=== PATIENT | female | born 1975 | race Caucasian/White ===

== ENCOUNTER → 2020-05-03 16:37 | Outpatient (CLI) | payer BC, SELFPAY ==
--- NOTE | ~2020-05-03 | XR_ITS ---
XR foot RT min 3V DATE: 05/03/2020 16:54 INDICATION: Right foot pain TECHNIQUE: 4 views COMPARISON: None FINDINGS: No fracture, dislocation, periosteal reaction or bone destruction. IMPRESSION: Negative Reviewed, dictated and finalized at location A. IMPRESSION: Negative
== END ==
PROVIDERS: PCP Family Medicine; Visit Provider Physician Assistant
DX: M79.673 Pain in unspecified foot (principal)
CPT/HCPCS: 73630

== ENCOUNTER → 2020-09-06 14:56 | Outpatient (CLI) | payer BC, SELFPAY ==
--- NOTE | ~2020-09-06 | MM_ITS ---
EXAMINATION: MM screening [facility] BI w yo HISTORY: Screening mammogram TECHNIQUE: Craniocaudal and mediolateral oblique 3-D tomosynthesis images were obtained and synthetic 2-D images were generated. CAD analysis was submitted and interpreted. COMPARISON: 06/16/2019, 06/09/2019, 01/29/2018 BREAST PARENCHYMAL COMPOSITION: There are scattered areas of fibroglandular density. FINDINGS: There is no evidence of suspicious mass, calcification, or architectural distortion to sugg est malignancy in either breast. There has been no suspicious interval change. IMPRESSION: 1. No mammographic evidence of malignancy. 2. Recommend routine screening mammography in one year. BI-RADS Category 1: Negative Reviewed, dictated and finalized at location A. 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
== END ==
PROVIDERS: Visit Provider Obstetrics & Gynecology
DX: Z12.31 Encounter for screening mammogram for malignant neoplasm of breast (principal)
CPT/HCPCS: 77063; 77067

== ENCOUNTER → 2021-07-18 14:39 | Outpatient (CLI) | payer BC, SELFPAY ==
--- NOTE | ~2021-07-18 | US_ITS ---
EXAMINATION: US pelvic complete w TV EXAM DATE: 07/18/2021 15:07 INDICATION: Hypertrophy of uterus. TECHNIQUE: Pelvic transabdominal and transvaginal sonogram was performed. There are multiple graysca le and Doppler images available for interpretation. There is no prior study for comparison. FINDINGS: Uterus measures 8.4 x 3.4 x 4.4 cm, fundal fibroid measuring 2.5 cm, smaller anterior pedu nculated fibroid measuring 1.1 cm. Endometrial stripe measures 10 mm, within normal limits. There is no free pelvic fluid. Right adnexa: The ovary measures 2.9 x 2.4 x 2.2 cm and is morphologically normal. Ovarian vascular f low confirmed. Left adnexa: The ovary measures 1.7 x 1.5 x 2.5 cm and is morphologically normal. Ovarian vascular fl ow confirmed. IMPRESSION: Fibroid uterus. Reviewed, dictated and finalized at location B. 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
== END ==
PROVIDERS: Visit Provider Obstetrics & Gynecology
DX: N85.2 Hypertrophy of uterus (principal); D25.9 Leiomyoma of uterus, unspecified
CPT/HCPCS: 76830; 76856

== ENCOUNTER → 2021-11-07 16:14 | Outpatient (CLI) | payer BC, SELFPAY ==
--- NOTE | ~2021-11-07 | MM_ITS ---
EXAMINATION: MM screening [facility] BI w yo HISTORY: Screening mammogram TECHNIQUE: Craniocaudal and mediolateral oblique 3-D tomosynthesis images were obtained and synthetic 2-D images were generated. CAD analysis was submitted and interpreted. COMPARISON: 09/16/2020, 06/16/2019, 06/09/2019 BREAST PARENCHYMAL COMPOSITION: There are scattered areas of fibroglandular density. FINDINGS: There is no evidence of suspicious mass, calcification, or architectural distortion to sugg est malignancy in either breast. There has been no suspicious interval change. IMPRESSION: 1. No mammographic evidence of malignancy. 2. Recommend routine screening mammography in one year. BI-RADS Category 1: Negative Reviewed, dictated and finalized at location A.
== END ==
PROVIDERS: Visit Provider Obstetrics & Gynecology
DX: Z12.31 Encounter for screening mammogram for malignant neoplasm of breast (principal)
CPT/HCPCS: 77063; 77067

== ENCOUNTER 2022-01-22 08:22 | Outpatient (CLI) | payer BC, SELFPAY ==
[2022-01-22 08:47] LABS: Basophils Percent Auto 0.6 % (0.2-1.2); Eosinophils Absolute Auto 0.2 K/mm3 (0-0.3); Eosinophils Percent Auto 3.7 % (0-4.4); Hematocrit 40.7 % (37.0-47.0); Immature Granulocyte Absolute 0.02 K/mm3 (0.00-0.031); Immature Granulocyte Percent A 0.4 % (0-0.5); Lymphocytes Absolute Auto 0.98 K/mm3 (0.9-3.2); Lymphocytes Percent Auto 18.2 % (18.3-44.2); Mean Corpuscular HGB Conc 31.9 g/dl (32-36); Mean Corpuscular Volume 90.8 fl (80-100); Monocytes Absolute Auto 0.3 K/mm3 (0.1-0.6); Monocytes Percent Auto 5.6 % (2.6-8.5); Neutrophils Absolute Auto 3.8 K/mm3 (1.3-6.7); Neutrophils Percent Auto 71.5 % (45.5-73.1); Platelet Count Result 207 k/mm3 (150-375); Red Blood Count 4.48 M/mm3 (4.2-5.4); Red Cell Distribution Width 13.4 % (11.5-14.5); White Blood Count 5.4 K/mm3 (4.5-10.0)
== END 2022-01-22 08:23 | disposition home or self-care (01) ==
LOC: ANHSURGERY 08:27
PROVIDERS: PCP Family Medicine; Visit Provider Obstetrics & Gynecology
DX: Z01.812 Encounter for preprocedural laboratory examination (principal); N85.2 Hypertrophy of uterus
CPT/HCPCS: 36415; 85025; 86850; 86900; 86901

== ENCOUNTER 2022-01-23 00:14 | Day surgery (SDC) | payer BC, SELFPAY ==
--- NOTE | 2022-01-19 14:46 | SUR.PREOP ---
Report to the Outpatient Waiting Room, entrance under the green pavilion located off [facility], at time 0600 on date 01/23/22. OR Time: 0730. - You and your visitor will be asked a series of questions to screen for COVID 19 for your protection. - Only one visitor is allowed at this time. - The patient visitor is requested to leave or wait in car when not with patient. - A mask is required within the hospital. Patients may have clear liquids (water, carbonated beverages, clear teas, apple juice) until 3 hours prior to surgery with a maximum of 20 ounces. - NO CLEAR LIQUIDS AFTER 0530 - No food from midnight until time of surgery - Infants may have breast milk until 4 hours before surgery, infant formula 6 hours prior to surgery. - Children will be allowed to drink immediately following surgery. If applicable, please bring a bottle or sippy cup to assist with drinking. Juice, water, soda, and popsicles are readily available. For infants on formula, please bring formula the day of surgery. Pacifiers are allowed. Take the following medications with a SIP of water the morning of surgery: SERTRALINE Please no make-up, nail english, hairspray, perfume, deodorant, or body powder the day of surgery. No jewelry (including any body piercings) or valuables the day of surgery, leave them at home. Please take a shower or bath the night before, or the morning of, surgery with an antibacterial soap. Wear comfortable, loose fitting clothing. Children are encouraged to wear pajamas. - Jewelry must be removed prior to entering the operating room. Rings and piercings that are not removed may be cut off. - The hospital will not accept responsibility for valuables. - Please leave all valuables, including medications, at home the day of surgery. If you are going home after surgery, a licensed o[employer] flatbed company truck driver must drive you home. - NO public transportation without another adult. - We recommend that an adult stay with you for 24 hours following discharge. - We also recommend that you do not drive, make important decision, drink alcoholic beverages, or take any drugs that were not prescribed by your health care provider for at least 24 hours after your discharge time. For Pediatric surgeries, we recommend two adults accompany the child home (only one inside the building at this time). Follow any additional instructions given to you from your surgeon. If you or anyone in your household have experienced Covid symptoms in the past week, please notify your surgeon or the nurse liaison at the phone number below for possible testing. Telephone instructions given to PRACHI ZAPIEN and asked if any additional questions and then verbalized understanding. Patient advised to call surgeon office or pre surgery nurse liaison [phone] if any additional questions.
[2022-01-19 14:59] VITALS: BMI 35.6
--- NOTE | 2022-01-22 07:27 | PM.IMHP ---
H&P: HPI History of Present Illness Date/Time: 01/22/22 07:27 Chief Complaint: enlarged uterus with heavy bleeding refractory to medical therapy . Risks and benefits reviewed including but not exclusive of , aspiration pneumonia, bleeding, transfusion, perforation injury to bowel, bladder, ureters, or other internal organs with need for open laparotomy. She received the ACO[employer] handout entitled hysterectomy as well as the [place] handout. She had all questions answered and asked to proceed PMFSH Past Medical History Medical History (Updated 01/22/22 @ 07:30 by Marc Rust MD) Allergic rhinitis Anxiety Cholelithiases Surgical History Surgical History Gastric bypass status for obesity H/O knee surgery Family History Family History Father Family history of diabetes mellitus in first degree relative Patient's father is in good health Family history of coronary artery disease Mother Family history of diabetes mellitus in first degree relative Hypertension Sibling Patient's sister is in good health Patient's brother is in good health Social History Social History Smoking status: Never smoker Second hand tobacco smoke exposure: No Alcohol intake: current Drinks per week: 21 Substance use: never Spiritual care concerns: No Meds Home Medications and Allergies Home Medications Medication Instructions Recorded Confirmed Type fluticasone propionate 50 1 spray intranasal BID #9.9 mL 08/07/20 01/19/22 Rx mcg/actuation nasal spray,suspension ergocalciferol (vitamin D2) 1,250 50,000 unit PO WEEKLY 01/19/22 01/19/22 History mcg (50,000 unit) capsule sertraline 50 mg tablet 100 mg PO DAILY 01/19/22 01/19/22 History Allergies Allergy/AdvReac Type Severity Reaction Status Date / Time latex Allergy Intermediate Itching Verified 01/19/22 14:37 Penicillins Allergy Unknown Rash Verified 01/19/22 14:37 Exam : Bimanual exam- vagina & uterus: enlarged Assessment and Plan Assessment and plan (1) Enlarged uterus: Code(s): N85.2 - Hypertrophy of uterus Status: Acute (2) Excessive bleeding: Code(s): R58 - Hemorrhage, not elsewhere classified Status: Acute Additional Plan robotic total vaginal hysterectomy and bilateral salpingectomies
[2022-01-23] VITALS (9 sets, daily range): BP systolic 97–147; BP diastolic 48–94; PULSE 53–95; RESP 12–20; TEMP 36.5–37; O2SAT 95–100
[2022-01-23] MEDS: ACETAMINOPHEN 500 MG TABLET 1000 MG PO (06:55)
[2022-01-23] MEDS: LACTATED RINGERS 1,000 ML 30 ML IV CONT ×2 (06:55→08:42)
--- NOTE | 2022-01-23 07:02 | WPDANESEPPF ---
Anes - Initial Pre Proc Eval Procedure: Operation Date: 01/23/22 07:30 Proposed Procedures p Robotic Assisted Total Vaginal Hysterectomy with Bilateral Salpingectomy - Marc Rust MD Date/Time: 01/23/22 07:02 Surgeon: Marc Rust MD Pre Op Diagnosis: heavy bleeding, enlarge uterus, fibroids, pain Patient Data Age: 46 Gender: F Height: 1.68 m Weight: 100 kg Allergies Allergy/AdvReac Type Severity Reaction Status Date / Time latex Allergy Intermediate Itching Verified 01/23/22 06:51 Penicillins Allergy Unknown Rash Verified 01/23/22 06:51 Home Medications Medication Instructions Recorded Confirmed Type fluticasone propionate 50 1 spray intranasal BID #9.9 mL 08/07/20 01/23/22 Rx mcg/actuation nasal spray,suspension ergocalciferol (vitamin D2) 1,250 50,000 unit PO WEEKLY 01/19/22 01/19/22 History mcg (50,000 unit) capsule sertraline 50 mg tablet 100 mg PO DAILY 01/19/22 01/23/22 History Patient hx anesthesia problems: none Family hx anesthesia problems: none Results Review: All pre-operative results and documents have been reviewed as part of the pre-operative evaluation. [facility] Past Medical History Medical History (Updated 01/22/22 @ 07:30 by Marc Rust MD) Allergic rhinitis Anxiety Cholelithiases Surgical History Surgical History Gastric bypass status for obesity H/O knee surgery Family History Family History Father Family history of diabetes mellitus in first degree relative Patient's father is in good health Family history of coronary artery disease Mother Family history of diabetes mellitus in first degree relative Hypertension Sibling Patient's sister is in good health Patient's brother is in good health Social History Social History Smoking status: Never smoker Second hand tobacco smoke exposure: No Alcohol intake: current Drinks per week: 21 Substance use: never Living arrangements: with family Spiritual care concerns: No Anes - Eval Final PreProcedure Day of Procedure 01/23/22 07:02 Patient weight: obese Heart: regular rate and rhythm Lungs: clear to auscultation Airway: Mallampati scale class II Neurological: alert and oriented ASA classification: II Emergent: no Anesthesia type and monitoring: general ETT and standard monitoring Results Review: All pre-operative results and documents have been reviewed as part of the pre-operative evaluation. Informed Consent: The patient's anesthetic plan and its attendant risks and benefits were discussed with the patient/family/POA. Questions were solicited and answers provided to the satisfaction of the patient/family/POA.
--- NOTE | 2022-01-23 07:11 | WPDHPUPDATE1 ---
History and Physical Update Update Date/Time: 01/23/22 07:11 History and Physical has been reviewed, including an updated exam of the patient. There are NO changes in the patient's condition. Risks, benefits, and alternatives have been discussed and questions answered. Patient agrees to proceed with procedure.
[2022-01-23] MEDS: ceFAZolin 2 GM/D5W 50 ML 2 GM/50 ML BAG IVPB (07:26)
--- NOTE | 2022-01-23 08:29 | SUR.OPER ---
EBL 25
--- NOTE | 2022-01-23 08:30 | W.PM.PROC2 ---
Procedure Note - Detailed Date of Procedure 01/23/22 Pre-op Diagnosis heavy bleeding, enlarge uterus, fibroids, pain Post-op Diagnosis Same Procedure Performed Robotic total vaginectomy and bilateral salpingectomy Extensive lysis of a D Surgeon Marc Rust MD Anesthesia General Indications This 46-year-old female with fibroid uterus with pain and bleeding refractory to medical therapy Findings Enlarged uterus. Normal-appearing ovaries. Multiple adhesions Description of Procedure The patient was prepped draped in the normal sterile fashion placed in the dorsal lithotomy position. Under excellent general trach anesthesia weighted speculum placed in posterior fornix vagina. Anterior lip of the cervix grasped with single-tooth tenaculum and the uterus sounded to 10cm. Serial dilatation with fragmented dilators performed followed by passage of the 10. SHERI and the 2. 0.5 cold cup. Next the 16 Upper Sorbian catheter was placed. The weighted speculum was removed the gloves were changed. A supraumbilical incision made the Veress needle passed in the abdomen. Abdomen filled with CO2 gas [id number]. The 8mm trocar advanced in the abdomen downside visualized no injury seen. Patient placed in Trendelenburg and right left lateral quadrant incisions were made. The 8mm trocars advanced under direct visualization assuring no injury. A right upper quadrant incision made the 8mm trocar advanced under direct visualization assuring no injury. Attention was turned to the counseling case manager. Multiple adhesions were seen in the uterus was difficult to visualize using sharp dissection the omentum and fatty layers were sharply dissected clearing the lateral sidewalls in the anteriorly over the bladder and the uterus. Once this was cleared the left round ligament was grasped, burned, cut. Anteriorly a bladder flap formed by sharply dissecting the peritoneum and reflecting the bladder caudally to the opposite round ligament was clamped, burned, cut. Next left fallopian tube was sharply dissected using monopolar cautery away from the ovarian complex and left attached to the uterine origin. In like fashion the right fallopian tube was sharply dissected and away from the ovarian complex and left attached to its uterine origin. The utero-ovarian ligament on the right was skeletonized to conserve the left ovary this was clamped, burned, cut brought to level of the previously cut round ligament. Conserving the right ovary the utero-ovarian ligaments clamped, burned, cut brought to the level of previously cut round ligament. Cardinal broad ligaments on the left were serially skeletonized clamping burning cutting along the cervix and uterus hugging it tightly until the uterine vessels could be seen on the left. These were noted to be large and tortuous. There were individually clamped, burned, cut. Next the cardinal broad ligaments on the right were serially skeletonized. These were clamped, burned, cut carefully hugging the cervix and uterus until the uterine vessels could be seen on the right. These were also large and tortuous and individually clamped, burned, cut. Blanching of the uterus was seen. A colpotomy incision was made in the cervix uterus and and tubes removed through the vagina. The vagina was closed with continuous running 0V lock from lateral edge to lateral edge back to the midline. Irrigation undertaken until clear blood loss estimated 25cc. The robot was undocked. The gas removed from the abdomen. Incisions closed with 4-0 Monocryl and glue after the gas had been removed. The patient was awakened and went to recovery in satisfactory condition. All sponge, needle, instrument counts were correct. There were no immediate complications Estimated Blood Loss 25 Pathology Yes Complications No immediate complications Condition Stable
[2022-01-23] MEDS: fentaNYL CITRATE INJ (*CRX) 100 MCG/2 ML VIAL 25 MCG IV PUSH ×4 (09:05→09:38)
[2022-01-23] MEDS: KETOROLAC 30 MG/ML VIAL (*BKC) IV PUSH (15:00)
[2022-01-23] MEDS: DOCUSATE SODIUM 100 MG CAPSULE PO (18:18)
[2022-01-23] MEDS: IBUPROFEN 600 MG TABLET PO (21:02)
[2022-01-23] MEDS: HYDROcodone/acetaminophen (*CRX) 5-325 MG TABLET 1 TAB PO (21:02)
[2022-01-24 00:04] VITALS: BP 137/95; PULSE 81; RESP 16; TEMP 37.1; O2SAT 96
[2022-01-24] MEDS: IBUPROFEN 600 MG TABLET PO (04:06)
[2022-01-24] MEDS: HYDROcodone/acetaminophen (*CRX) 5-325 MG TABLET 1 TAB PO (04:07)
[2022-01-24 05:07] LABS: Basophils Percent Auto 0.1 % (0.2-1.2); Eosinophils Absolute Auto 0.2 K/mm3 (0-0.3); Eosinophils Percent Auto 3.2 % (0-4.4); Hematocrit 34.7 % (37.0-47.0); Hemoglobin 11.3 g/dL (12.0-15.0); Immature Granulocyte Absolute 0.03 K/mm3 (0.00-0.031); Immature Granulocyte Percent A 0.4 % (0-0.5); Lymphocytes Absolute Auto 0.95 K/mm3 (0.9-3.2); Lymphocytes Percent Auto 12.8 % (18.3-44.2); Mean Corpuscular HGB Conc 32.6 g/dl (32-36); Mean Corpuscular Hemoglobin 29.5 pg (26-34); Mean Corpuscular Volume 90.6 fl (80-100); Mean Platelet Volume 10.1 fl (7.4-10.4); Monocytes Absolute Auto 0.4 K/mm3 (0.1-0.6); Monocytes Percent Auto 5.4 % (2.6-8.5); Neutrophils Absolute Auto 5.8 K/mm3 (1.3-6.7); Neutrophils Percent Auto 78.1 % (45.5-73.1); Platelet Count Result 164 k/mm3 (150-375); Red Blood Count 3.83 M/mm3 (4.2-5.4); Red Cell Distribution Width 13.3 % (11.5-14.5); White Blood Count 7.4 K/mm3 (4.5-10.0)
[2022-01-24 07:41] VITALS: BP 116/70; PULSE 64; RESP 16; TEMP 36.1; O2SAT 98
--- NOTE | 2022-01-24 07:59 | P.DS_ITS ---
DS: Admitting Diagnosis Discharge Date 01/24/22 Admitting Diagnosis abnormal uterine bleeding DS: Summary Hospital Course Hospital Course: Sue Colón was admitted after robotic assisted total laparoscopic hysterectomy and bilateral salpingectomy for abnormal uterine bleeding. The above procedure was performed with no complications. She is doing well post op. She states her pain is well controlled with PO medications. She reports minimal bleeding. She is ambulating up to the chair. Her lui catheter was removed. She is tolerating PO without N/V. She reports passing flatus. Status at Discharge Overall status at discharge: patient is progressing back to baseline Time Spent with Patient Time attestation: Total time spent providing and/or coordinating discharge services: Time spent: Less than 30 minutes Exam Const: General: comfortable and no acute distress Limitations: no limitations Resp: Effort & Inspection: normal respiratory effort Auscultation: clear to auscultation bilaterally Cardio: Rate: regular rate Rhythm: regular rhythm GI: Inspection: non-distended GI Palp: Yes Soft to palpation, Yes Tenderness to palpation present (GI) (milder tenderness to deep palpation) and No Guarding due to palpation present (GI) Auscultation: normal bowel sounds Other: incisions C/D/I covered with dermabond Urinary Catheter: Urinary Catheter: urine clear Skin: General skin exam: normal color Extrem: General: normal to inspection Psych: Mental Status: mental status grossly normal Affect: normal affect DS: Data Data Completed and Pending Pending studies at discharge: Pending at discharge 01/23/22 08:18 Surgical [PTH] Routine Labs on day of discharge: Labs from last 24 hours 01/24/22 04:58 WBC 7.4 RBC 3.83 L Hgb 11.3 L Hct 34.7 L MCV 90.6 MCH 29.5 MCHC 32.6 RDW 13.3 Plt Count 164 MPV 10.1 Immature Gran % (Auto) 0.4 Neut % (Auto) 78.1 H Lymph % (Auto) 12.8 L [place] % (Auto) 5.4 Eos % (Auto) 3.2 Baso % (Auto) 0.1 L Lymph # (Auto) 0.95 [place] # (Auto) 0.4 Eos # (Auto) 0.2 Baso # (Auto) 0.0 Abs Immat Gran (auto) 0.03 Absolute Neuts (auto) 5.8 Absolute Nucleated RBC 0.0 Nucleated RBC % 0.0 Discharge Plan Discharge Patient Disposition: Home, Self-Care Patient Instructions: Hysterectomy (DC) Stand Alone Forms: General Discharge Instructions Follow-up/Referrals: Marc Santiago MD [Physician] - Discharge Medications: New hydrocodone-acetaminophen 5-325 mg tablet 1 tablet PO Q4H PRN (Reason: pain) Qty: 30 0RF No Action fluticasone propionate 50 mcg/actuation spray,suspension 1 spray intranasal BID Qty: 9.9 1RF Rx Instructions: administer into each nostril ergocalciferol (vitamin D2) 1,250 mcg (50,000 unit) capsule 50,000 unit PO WEEKLY sertraline 50 mg tablet 100 mg PO DAILY
[2022-01-24] MEDS: DOCUSATE SODIUM 100 MG CAPSULE PO (09:59)
[2022-01-24] MEDS: ENOXAPARIN 40 MG/0.4 ML SYRINGE SUB-Q (10:00)
== END 2022-01-24 10:52 | disposition home or self-care (01) ==
LOC: ANHSURGERY 07:12 → ANHOB2 09:54
PROVIDERS: PCP Family Medicine; Visit Provider Obstetrics & Gynecology
PROC: (CPT 58552; principal; 2022-01-23 07:30)
DX: N93.9 Abnormal uterine and vaginal bleeding, unspecified (principal); N80.0 Endometriosis of uterus; D25.1 Intramural leiomyoma of uterus; D25.2 Subserosal leiomyoma of uterus; N73.6 Female pelvic peritoneal adhesions (postinfective); F41.9 Anxiety disorder, unspecified; Z98.84 Bariatric surgery status; E66.9 Obesity, unspecified; Z68.35 Body mass index [BMI] 35.0-35.9, adult
CPT/HCPCS: 58552; S2900; 36415; 85025; 88307; 99199; A9270; J0690; J1100; J1650; J1885; J2405; J2704; J2710; J3010; J7120

== ENCOUNTER 2022-03-23 17:46 | Emergency (ER) | payer BC, SELFPAY ==
[2022-03-23 17:54] VITALS: BP 167/83; PULSE 67; RESP 16; TEMP 36.2; O2SAT 100
--- NOTE | 2022-03-23 17:55 | ED.EAR ---
HPI - Ear Problem General Chief complaint: Ear Stated complaint: Ear Pain Time Seen by Provider: 03/23/22 17:55 Source: patient and RN notes reviewed Mode of arrival: ambulatory Limitations: no limitations History of Present Illness HPI Narrative: 46-year-old female presents to the [facility] with complaints of bilateral ear pain and pressure for 12 days since she got off the plane. Had called her primary care provider was told to take some Sudafed. Has taken Sudafed but her ears are still getting worse. Denies any fevers. Denies any other significant past medical or surgical history. Patient reports that she is allergic to penicillin as a child. States that she has taken cephalosporins in the past without issue Related Data Home Medications Medication Instructions Recorded Confirmed ergocalciferol (vitamin D2) 1,250 50,000 unit PO WEEKLY 01/19/22 03/23/22 mcg (50,000 unit) capsule Allergies Allergy/AdvReac Type Severity Reaction Status Date / Time latex Allergy Intermediate Itching Verified 03/23/22 17:53 Penicillins Allergy Unknown Rash Verified 03/23/22 17:53 Review of Systems Review of Systems: All systems reviewed & are unremarkable except as noted in HPI and below Constitutional: Constitutional: Reports no additional constitutional complaints, Denies chills and Denies fever(s) Eyes: Eyes: Reports no additional eye complaints ENT: Reports system reviewed and no additional complaints, except as documented Cardiovascular: Cardiovascular: Reports no additional cardiovascular complaints Respiratory: Respiratory: Reports no additional respiratory complaints Gastrointestinal: Gastrointestinal: Reports no additional gastrointestinal complaints Musculoskeletal: Musculoskeletal: Reports no additional musculoskeletal complaints Integumentary/Breasts: Skin/Breast: Reports system reviewed and no additional complaints, except as docu Neurologic: Reports system reviewed and no additional complaints, except as documented Psychiatric: Psychiatric: Reports no additional psychiatric complaints Allergic/Immunologic: Allergic/Immunologic: Reports no additional allergic/immunologic complaints [facility] Past Medical History Medical History (Updated 03/24/22 @ 17:19 by Kelli Woodruff APRN) Allergic rhinitis Anxiety Cholelithiases Surgical History Surgical History Gastric bypass status for obesity H/O knee surgery Family History Family History Father Family history of diabetes mellitus in first degree relative Patient's father is in good health Family history of coronary artery disease Mother Family history of diabetes mellitus in first degree relative Hypertension Sibling Patient's sister is in good health Patient's brother is in good health Social History Social History Smoking status: Never smoker Second hand tobacco smoke exposure: No Alcohol intake: current Drinks per week: 21 Substance use: never Spiritual care concerns: No Comments At the time of my signature, I reviewed and agree with the nursing past medical, surgical, social, and family history. There is no relevant family history pertinent to the patient complaint. Exam Const: General: healthy appearing, no acute distress and alert Nutritional Appearance: well nourished Orientation/consciousness: patient oriented x3 Limitations: no limitations HENMT: Head: normal to inspection Ears: external ears normal, EAC's normal and TM abnormal erythematous on the right and with fluid behind the TM bilateral Eyes: General: appearance normal, both eyes and all related structures Pupils: Equal, round and reactive pupils present Neck: Neck: normal visual inspection, no lymphadenopathy and no meningeal signs Chest: Chest palpation & inspection: normal inspection of the
== END 2022-03-23 18:12 | disposition home or self-care (01) ==
PROVIDERS: Emergency Provider Nurse Practitioner; PCP Family Medicine
DX: H66.91 Otitis media, unspecified, right ear (principal); H69.93 Unspecified Eustachian tube disorder, bilateral
CPT/HCPCS: 99213; G0463

== ENCOUNTER 2022-10-01 18:12 | Emergency (ER) | payer BC, SELFPAY ==
[2022-10-01 18:55] VITALS: BP 156/94; PULSE 77; RESP 16; TEMP 36; O2SAT 100
--- NOTE | 2022-10-01 19:23 | ED.URI ---
HPI - URI/Sore Throat General Chief Complaint: Upper Respiratory Infection Stated Complaint: cold symptoms Time Seen by Provider: 10/01/22 19:10 Source: patient and RN notes reviewed Mode of arrival: ambulatory Limitations: no limitations History of Present Illness HPI Narrative: 46-year-old female here with 8 day history of cough, postnasal drip, and rhinorrhea. Was prescribed a z-pack and medrol dospak which she completed two days ago. Has taken mucinex, claritin, nyquil, valeria seltzer cold and flu all with variable alleviation of symptoms. Cough is worse at night and wakes her up unless she takes nyquil, productive of clear sputum. Denies painful swallow or sore throat, fatigue, sob, wheezing, n/v/d/c, lack of appetite, fever, chills, malaise. 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 MD elicited complaint: cough Related Data Home Medications Medication Instructions Recorded Confirmed ergocalciferol (vitamin D2) 1,250 50,000 unit PO WEEKLY 01/19/22 10/01/22 mcg (50,000 unit) capsule Allergies Allergy/AdvReac Type Severity Reaction Status Date / Time latex Allergy Intermediate Itching Verified 10/01/22 19:05 Penicillins Allergy Unknown Rash Verified 10/01/22 19:05 Review of Systems Review of Systems: CONSTITUTIONAL: Denies malaise, chills, sweats, fever EYES: Denies visual changes, redness, or discharge ENT: Reports rhinorrhea, congestion. Denies sinus pain, otalgia, or sore throat CARDIOVASCULAR: Denies chest pain, palpitations, edema RESPIRATORY: Reports cough, post nasal drainage. Denies dyspnea GASTROINTESTINAL: Denies abdominal pain, nausea, vomiting, diarrhea SKIN: Denies rash or itching MUSCULOSKELETAL: Denies myalgia NEUROLOGIC: Denies headache PMFSH Past Medical History Medical History Allergic rhinitis Anxiety Cholelithiases Hypertension Surgical History Surgical History Gastric bypass status for obesity H/O knee surgery Family History Family History Father Family history of diabetes mellitus in first degree relative Patient's father is in good health Family history of coronary artery disease Mother Family history of diabetes mellitus in first degree relative Hypertension Sibling Patient's sister is in good health Patient's brother is in good health Social History Social History Smoking status: Never smoker Second hand tobacco smoke exposure: No Alcohol intake: current Drinks per week: 21 Substance use: never Living arrangements: with family Spiritual care concerns: No Exam Narrative: GENERAL: Well-appearing EYES: PERRLA, conjunctivae clear ENT: Mucous membranes moist. TM pearly osorio with dull light reflex bilaterally; no tragal tenderness. Mildly hoarse voice. Oropharynx erythematous without lesions or exudate, no drooling, no trismus, uvula midline. NECK: Supple. No lymphadenopathy CHEST: Clear to auscultation, breath sounds equal. No wheezing, rhonchi, rales, or stridor. No respiratory distress, speaks in full sentences. HEART: Regular rate and rhythm. No murmur heard. SKIN: Warm, dry, no rash. NEURO: Alert and oriented x3. PSYCH: Normal mood and affect Course Course Emergency Course: Patient is aware of diagnosis, understands and agrees to treatment plan. Anticipatory guidance given. Patient agrees to follow-up as directed and is aware of reasons to seek care at the emergency department. Portions of this record may have been created with voice recognition software Level of Care: Express Care Visit Vital Signs Vital signs: Vital Signs Temperature 96.8 F L 10/01/22 18:55 Pulse Rate 77 10/01/22 18:55 Respiratory Rate 16 10/01/22 18:55 Blood Pressure 156/94 H 10/01/22 18:5
== END 2022-10-01 19:28 | disposition home or self-care (01) ==
PROVIDERS: Emergency Provider Nurse Practitioner Family; PCP Family Medicine
DX: J06.9 Acute upper respiratory infection, unspecified (principal); I10 Essential (primary) hypertension; Z98.84 Bariatric surgery status
CPT/HCPCS: 99213; G0463

== ENCOUNTER 2023-11-22 01:01 | Day surgery (SDC) | payer BC, SELFPAY ==
[2023-11-12 10:42] VITALS: BMI 30.2
--- NOTE | 2023-11-19 08:37 | SUR.PREOP ---
Patient called regarding upcoming procedure. Voicemail left regarding appointment times.
[2023-11-22 08:50] VITALS: BP 154/93; PULSE 63; RESP 16; TEMP 35.8; O2SAT 98; BMI 31.1
[2023-11-22] MEDS: LACTATED RINGERS 1,000 ML 150 ML IV CONT (09:07)
--- NOTE | 2023-11-22 09:13 | WPDANESEPPF ---
Anes - Initial Pre Proc Eval Procedure: Operation Date: 11/22/23 10:00 Proposed Procedures p Screening Colonoscopy - Chuck Bagley MD Date/Time: 11/22/23 09:13 Surgeon: Chuck Bagley MD Pre Op Diagnosis: neoplasm screening Patient Data Age: 47 Gender: F Height: 1.68 m Weight: 87.4 kg Last Vital Signs Temp 96.4 F L 11/22/23 08:50 Pulse 63 11/22/23 08:50 Resp 16 11/22/23 08:50 BP 154/93 H 11/22/23 08:50 Pulse Ox 98 11/22/23 08:50 O2 Del Method Room Air 11/22/23 08:50 Allergies Allergy/AdvReac Type Severity Reaction Status Date / Time latex Allergy Intermediate Itching Verified 11/22/23 08:56 Penicillins Allergy Unknown Rash Verified 11/22/23 08:56 Surgical Tape Allergy Rash Uncoded 11/22/23 08:56 Home Medications Medication Instructions Recorded Confirmed Type sertraline 50 mg tablet 50 mg PO DAILY 90 days #90 tabs 07/09/23 11/22/23 Rx metronidazole 0.75 % topical cream 1 applic topical DAILY #45 grams 08/02/23 11/22/23 Rx ergocalciferol (vitamin D2) 1,000 1,000 unit PO DAILY 11/12/23 11/22/23 History unit capsule [id number] 45 mg-folic 1 cap PO DAILY 11/12/23 11/22/23 History acid 800 mcg-vit K 120 mcg capsule (Bariatric Multivitamins) simethicone 80 mg chewable tablet 80 mg PO DAILY 11/12/23 11/22/23 History vitamin K2 100 mcg capsule 100 mcg PO DAILY 11/12/23 11/22/23 History Patient hx anesthesia problems: none Family hx anesthesia problems: none Results Review: All pre-operative results and documents have been reviewed as part of the pre-operative evaluation. [facility] Past Medical History Medical History Allergic rhinitis Anxiety Cholelithiases Hypertension Surgical History Surgical History (Updated 07/09/23 @ 14:38 by Susana Leon PA-C) Gastric bypass status for obesity original 2013 Revision 2022 H/O knee surgery Family History Family History Father Family history of diabetes mellitus in first degree relative Patient's father is in good health Family history of coronary artery disease Mother Family history of diabetes mellitus in first degree relative Hypertension Sibling Patient's sister is in good health Patient's brother is in good health Social History Social History Smoking status: Never smoker Second hand tobacco smoke exposure: No Alcohol intake: current Drinks per week: 10 Substance use: never Substance use type: does not use Lack of Transportation: No Lack of Food: Never True Current Housing: I Have Housing Concerned About Future Housing: No Difficulty Paying Gas/Electric Bills: No Difficulty Paying for Meds: No Currently Unemployed: No Education: Master's Degree or Higher Difficulty w/ Childcare or Family Care: No Living arrangements: alone Spiritual care concerns: No Anes - Eval Final PreProcedure Day of Procedure 11/22/23 09:13 Patient weight: obese Heart: regular rate and rhythm Lungs: clear to auscultation Airway: Mallampati scale class II Neurological: alert and oriented Last oral intake: >/= 8 hours ASA classification: II Emergent: no Anesthetic plan: proceed Anesthesia type and monitoring: general GIVS and standard monitoring Results Review: All pre-operative results and documents have been reviewed as part of the pre-operative evaluation. Informed Consent: The patient's anesthetic plan and its attendant risks and benefits were discussed with the patient/family/POA. Questions were solicited and answers provided to the satisfaction of the patient/family/POA.
--- NOTE | 2023-11-22 09:51 | PM.HPGS ---
History of Present Illness History of Present Illness Consent: Risks, benefits, and alternatives have been discussed and questions answered. Patient agrees to proceed with procedure. Chief complaint: neoplasm screening Narrative: Sue Colón is a 47 year old female here for first screening colonoscopy Review of Systems Review of Systems: All systems reviewed & are unremarkable except as noted in HPI and below PMFSH Past Medical History Medical History (Updated 11/22/23 @ 09:53 by Chuck Bagley MD) Allergic rhinitis Anxiety Cholelithiases Colon cancer screening Hypertension Surgical History Surgical History (Updated 07/09/23 @ 14:38 by Susana Leon PA-C) Gastric bypass status for obesity original 2013 Revision 2022 H/O knee surgery Family History Family History Father Family history of diabetes mellitus in first degree relative Patient's father is in good health Family history of coronary artery disease Mother Family history of diabetes mellitus in first degree relative Hypertension Sibling Patient's sister is in good health Patient's brother is in good health Social History Social History Smoking status: Never smoker Second hand tobacco smoke exposure: No Alcohol intake: current Drinks per week: 10 Substance use: never Substance use type: does not use Lack of Transportation: No Lack of Food: Never True Current Housing: I Have Housing Concerned About Future Housing: No Difficulty Paying Gas/Electric Bills: No Difficulty Paying for Meds: No Currently Unemployed: No Education: Master's Degree or Higher Difficulty w/ Childcare or Family Care: No Living arrangements: alone Spiritual care concerns: No Meds Home Medications and Allergies Home Medications Medication Instructions Recorded Confirmed Type sertraline 50 mg tablet 50 mg PO DAILY 90 days #90 tabs 07/09/23 11/22/23 Rx metronidazole 0.75 % topical cream 1 applic topical DAILY #45 grams 08/02/23 11/22/23 Rx ergocalciferol (vitamin D2) 1,000 1,000 unit PO DAILY 11/12/23 11/22/23 History unit capsule [id number]-[id number] 45 mg-folic 1 cap PO DAILY 11/12/23 11/22/23 History acid 800 mcg-vit K 120 mcg capsule (Bariatric Multivitamins) simethicone 80 mg chewable tablet 80 mg PO DAILY 11/12/23 11/22/23 History vitamin K2 100 mcg capsule 100 mcg PO DAILY 11/12/23 11/22/23 History Allergies Allergy/AdvReac Type Severity Reaction Status Date / Time latex Allergy Intermediate Itching Verified 11/22/23 08:56 Penicillins Allergy Unknown Rash Verified 11/22/23 08:56 Surgical Tape Allergy Rash Uncoded 11/22/23 08:56 Vital Signs Vital Signs - 24 hr 11/22/23 08:50 Temperature 96.4 F L Pulse Rate 63 Respiratory Rate 16 Blood Pressure 154/93 H Pulse Oximetry 98 Oxygen Delivery Room Air Exam Const: General: comfortable and no acute distress HENMT: Face/Nose/Sinus: Normal nares present Eyes: General: appearance normal, both eyes and all related structures Neck: Neck: no JVD Resp: Auscultation: clear to auscultation bilaterally Cardio: Rate: regular rate Rhythm: regular rhythm GI: Inspection: non-distended GI Palp: Yes Soft to palpation Skin: General skin exam: normal color Neuro: General: gait normal Speech: normal speech Extrem: General: normal to inspection Psych: Mental Status: mental status grossly normal Assessment and Plan Assessment and plan (1) Colon cancer screening: Code(s): Z12.11 - Encounter for screening for malignant neoplasm of colon Status: Acute Assessment and Plan: colonoscopy
[2023-11-22 10:06] VITALS: BP 126/88; PULSE 64; RESP 26; O2SAT 100
[2023-11-22 10:16] VITALS: BP 135/86; PULSE 61; RESP 15; O2SAT 100
[2023-11-22 10:26] VITALS: BP 142/90; PULSE 60; RESP 14; O2SAT 100
== END 2023-11-22 10:31 | disposition home or self-care (01) ==
PROVIDERS: PCP Family Medicine; Visit Provider Internal Medicine Gastroenterology
PROC: 0DJD8ZZ Inspection of Lower Intestinal Tract, Via Natural or Artificial Opening Endoscopic (ICD-10-PCS; CPT 45378; principal; 2023-11-22 10:00)
DX: Z12.11 Encounter for screening for malignant neoplasm of colon (principal); I10 Essential (primary) hypertension; F41.9 Anxiety disorder, unspecified; E66.9 Obesity, unspecified; Z68.31 Body mass index [BMI] 31.0-31.9, adult; Z98.890 Other specified postprocedural states; Z98.84 Bariatric surgery status; Z82.49 Family history of ischemic heart disease and other diseases of the circulatory system
CPT/HCPCS: 45378; J2704; J7120

== ENCOUNTER 2024-03-10 14:08 | Outpatient (CLI) | payer BC, SELFPAY ==
--- NOTE | ~2024-03-10 | MM_ITS ---
EXAMINATION: MM screening michelle BI w yo HISTORY: Screening TECHNIQUE: Craniocaudal and mediolateral oblique 3-D tomosynthesis images were obtained and synthetic 2-D images were generated. CAD analysis was submitted and interpreted. COMPARISON: Comparison to multiple prior studies sequentially, with oldest reviewed study dated 09/2017. BREAST PARENCHYMAL COMPOSITION: Not dense: There are scattered areas of fibroglandular density. FINDINGS: There is no evidence of suspicious mass, calcification, or architectural distortion to sugg est malignancy in either breast. There has been no suspicious interval change. IMPRESSION: 1. No mammographic evidence of malignancy. 2. Recommend routine screening mammography in one year. BI-RADS Category 1: Negative Reviewed, dictated and finalized at location B.
== END 2024-03-10 14:09 ==
LOC: MICIMG 14:10
PROVIDERS: PCP Family Medicine; Visit Provider Obstetrics & Gynecology
DX: Z12.31 Encounter for screening mammogram for malignant neoplasm of breast (principal)
CPT/HCPCS: 77063; 77067

== ENCOUNTER 2024-09-01 14:05 | Emergency (ER) | payer BC, SELFPAY ==
[2024-09-01 14:27] VITALS: BP 170/98; PULSE 65; RESP 16; TEMP 36.3; O2SAT 100
--- NOTE | 2024-09-01 14:50 | ED.EAR ---
HPI - Ear Problem General Chief complaint: Ear Stated complaint: sorethroat/ bilateral ear discomfort Time Seen by Provider: 09/01/24 14:50 Source: patient Mode of arrival: ambulatory Limitations: no limitations History of Present Illness HPI Narrative: 48-year-old female presents with complaint of intermittent congestion, postnasal drainage, sinus pressure for the past 2 weeks. Patient recently flew to [place]. After getting home having a lot of popping, crackling to bilateral ears with pain and pressure. Continues to have sinus congestion. Using Flonase and Zyrtec daily. Afebrile. All systems reviewed and negative except as noted above. Related Data Home Medications ?Medication ?Instructions ?Recorded ?Confirmed ?Last Taken ?Type ergocalciferol (vitamin D2) 1,000 1,000 unit PO DAILY 11/12/23 09/01/24 Unknown History unit capsule zahxtmml-servqmiw-oveg 45 mg-folic 1 cap PO DAILY 11/12/23 09/01/24 Unknown History acid 800 mcg-vit K 120 mcg capsule (Bariatric Multivitamins) simethicone 80 mg chewable tablet 80 mg PO DAILY 11/12/23 09/01/24 Unknown History vitamin K2 100 mcg capsule 100 mcg PO DAILY 11/12/23 09/01/24 Unknown History Allergies Allergy/AdvReac Type Severity Reaction Status Date / Time latex Allergy Intermediate Itching Verified 09/01/24 14:27 Penicillins Allergy Unknown Rash Verified 09/01/24 14:27 Surgical Tape Allergy Rash Uncoded 09/01/24 14:27 Review of Systems Review of Systems: CONSTITUTIONAL: Denies fever, chills, or sweats. EYES: Denies visual changes, redness, or discharge. ENT: Reports rhinorrhea, congestion, sinus pressure, postnasal drainage bilateral ear pain and pressure.. Denies sore throat CARDIOVASCULAR: Denies chest pain, palpitations, or edema. RESPIRATORY: Denies cough or dyspnea. GASTROINTESTINAL: Denies abdominal pain, nausea, vomiting, or diarrhea. GENITOURINARY: Denies dysuria or hematuria. SKIN: Denies rash or itching. MUSCULOSKELETAL: Denies back pain, joint pain, or myalgia. NEUROLOGIC: Denies headache, numbness, or weakness. PSYCHIATRIC: Denies anxiety or depression. All other systems reviewed are negative, except as documented in HPI. COUNT INCLUDES THE [facility] Past Medical History Medical History Allergic rhinitis Anxiety Cholelithiases Colon cancer screening Hypertension Surgical History Surgical History Gastric bypass status for obesity original 2013 Revision 2022 H/O knee surgery Family History Family History Father Family history of diabetes mellitus in first degree relative Patient's father is in good health Family history of coronary artery disease Mother Family history of diabetes mellitus in first degree relative Hypertension Sibling Patient's sister is in good health Patient's brother is in good health Social History Social History Smoking status: Never smoker Second hand tobacco smoke exposure: No Alcohol intake: current Drinks per week: 10 Substance use: never Substance use type: does not use Lack of Transportation: No Lack of Food: Never True Current Housing: I Have Housing Concerned About Future Housing: No Difficulty Paying Gas/Electric Bills: No Difficulty Paying for Meds: No Currently Unemployed: No Education: Master's Degree or Higher Difficulty w/ Childcare or Family Care: No Living arrangements: alone Spiritual care concerns: No Comments At time of signature, agree with nursing past medical, surgical, social and family history. There is no relevant family history pertinent to the presenting complaint. Exam Narrative: GENERAL: This is a well-nourished, well-developed patient, in no apparent distress. HEAD: normocephalic, atraumatic. EYES: PERRL. Sclera clear/white. Vision is grossly intact. EARS: External ears normal, auditory canals clear and without drainage, fluid bilateral TMs with air bubbles. Dull light reflex. No perforation or erythema bilaterally. Hearing grossly intact. NOSE: External nose normal with purulent nasal drainage, erythema and swelling to bilateral nares, mild congestion. THROAT: Mucous membranes moist, posterior pharynx clear. NECK: Neck supple, non-tender without lymphadenopathy, masses or thyromegaly. CARDIOVASCULAR: Regular rate and rhythm without murmurs, gallops, or rubs. RESPIRATORY: Clear to auscultation. Breath sounds equal bilaterally. No wheezes, rales, or rhonchi. SKIN: warm, Dry, intact with no suspicious lesions or rash, good texture and turgor. NEURO: awake, alert, and oriented to person, place and time. There were no obvious focal neurologic abnormalities. EXTREMITIES: No joint tenderness, effusion, or edema noted. Course Course Level of Care: Express Care Visit Vital Signs Vital signs: Vital Signs Temperature 36.3 C L 09/01/24 14:27 Pulse Rate 65 09/01/24 14:27 Respiratory Rate 16 09/01/24 14:27 Blood Pressure 170/98 H 09/01/24 14:27 Pulse Oximetry 100 09/01/24 14:27 Temperature 36.3 C L 09/01/24 14:27 Pulse Rate 65 09/01/24 14:27 Respiratory Rate 16 09/01/24 14:27 Blood Pressure 170/98 H 09/01/24 14:27 Pulse Oximetry 100 09/01/24 14:27 Reviewed Medical Decision Making MDM Narrative Medical decision making narrative: Will treat patient with antibiotic due to patient's duration of symptoms exam findings. Patient is aware of diagnosis, understands and agrees to treatment plan. Anticipatory guidance given. Patient agrees to follow-up as directed and is aware of reasons to seek care at the emergency department. Portions of this record may have been created with voice recognition software Vital Signs Vital Signs: Vital Signs Temperature 36.3 C L 09/01/24 14:27 Pulse Rate 65 09/01/24 14:27 Respiratory Rate 16 09/01/24 14:27 Blood Pressure 170/98 H 09/01/24 14:27 Pulse Oximetry 100 09/01/24 14:27 Temperature 36.3 C L 09/01/24 14:27 Pulse Rate 65 09/01/24 14:27 Respiratory Rate 16 09/01/24 14:27 Blood Pressure 170/98 H 09/01/24 14:27 Pulse Oximetry 100 09/01/24 14:27 Discharge Plan Discharge Clinical Impression: Acute bacterial sinusitis, Acute dysfunction of both eustachian tubes, Elevated blood pressure reading Patient Disposition: Home, Self-Care Condition: Stable Instructions: Antibiotic Form, Sinusitis (ED) Additional Instructions: Take medications as prescribed. Continue Zyrtec and Flonase daily. Drink at least 64 oz of water a day. Your blood pressure was elevated today. Follow-up with your primary care physician in 1 week to recheck. Patient Language: Monegasque Prescriptions: New doxycycline hyclate 100 mg capsule 100 mg PO BID 7 Days Qty: 14 0RF methylprednisolone [Medrol (Americo)] 4 mg tablets,dose pack See Rx Instructions PO .COMPLEX Qty: 21 0RF Rx Instructions: orally per package directions No Action metronidazole 0.75 % cream 1 applic topical DAILY Qty: 45 0RF simethicone [Gas-X] 80 mg Tablet,Chewable 80 mg PO DAILY Vitamin D2 1,000 unit Capsule 1,000 unit PO DAILY Bariatric Multivitamins 45 mg iron- 800 mcg-120 mcg Capsule 1 cap PO DAILY vitamin K2 100 mcg Capsule 100 mcg PO DAILY venlafaxine 37.5 mg capsule,extended release 24hr 37.5 mg PO DAILY Qty: 90 1RF Follow-up/Referrals: Rach Villafana MD [Primary Care Provider] - Time of Disposition: 14:58
== END 2024-09-01 15:01 | disposition home or self-care (01) ==
PROVIDERS: Emergency Provider Nurse Practitioner Family; PCP Family Medicine
DX: J01.80 Other acute sinusitis (principal); B96.89 Other specified bacterial agents as the cause of diseases classified elsewhere; H69.83 Other specified disorders of Eustachian tube, bilateral; I10 Essential (primary) hypertension
CPT/HCPCS: 99213; G0463

== ENCOUNTER 2025-03-16 13:58 | Outpatient (CLI) | payer BC, SELFPAY ==
--- NOTE | ~2025-03-16 | MM_ITS ---
EXAMINATION: MM screening michelle BI w [place] HISTORY: Screening TECHNIQUE: Craniocaudal and mediolateral oblique 3-D tomosynthesis images were obtained and synthetic 2-D images were generated. CAD analysis was submitted and interpreted. COMPARISON: Comparison to multiple prior studies sequentially, with oldest reviewed study dated 09/2017. BREAST PARENCHYMAL COMPOSITION: Not dense: There are scattered areas of fibroglandular density. FINDINGS: Stable benign mass lateral aspect of the right breast unchanged from prior studies. There i s no evidence of suspicious mass, calcification, or architectural distortion to suggest malignancy in either breast. There has been no suspicious interval change. IMPRESSION: 1. No mammographic evidence of malignancy. 2. Recommend routine screening mammography in one year. BI-RADS Category 2: Benign finding(s). Reviewed, dictated and finalized at location B.
== END 2025-03-16 13:59 | disposition home or self-care (01) ==
LOC: MICIMG 13:59
PROVIDERS: PCP Family Medicine; Visit Provider Obstetrics & Gynecology
DX: Z12.31 Encounter for screening mammogram for malignant neoplasm of breast (principal)
CPT/HCPCS: 77063; 77067